=== PATIENT | female | born 1985 | race Caucasian/White ===

== ENCOUNTER 2018-06-21 18:55 | Emergency (ER) | payer OTHER ==
--- NOTE | 2018-06-21 19:39 | EDPHY ---
H & P Stated Complaint: lower quadrant abd pain since 10 am, sent by urgent care. denies fever. Time Seen by Provider: 06/21/18 19:07 HPI/ROS: CHIEF COMPLAINT: Abdominal pain HISTORY OF PRESENT ILLNESS: This is a healthy 33-year-old female who has had intermittent crampy abdominal pain for the past 8 hr. She has tried ibuprofen, Tums, and Pedialyte. The pain continues to come and go. It is located in her right lower abdomen. She has not had fever. She has not had nausea or vomiting. She reports diarrhea yesterday, none today. She had a very small bowel movement this morning and feels as if she needs to move her bowels but has been unable to do so. No blood in her stool. In addition she has urinary urgency but is having difficulty emptying her urinary bladder. She needs to bear down in order to urinate. No dysuria. She has an IUD in place and has not had a menstrual period for a couple of months. She has a remote history of Chlamydia and HPV, treated. No recent vaginal discharge. No new sexual partners. She states that she drank alcohol Wednesday night, today is Wednesday. She does not drink regularly, twice a month on average. She was seen at an urgent care and referred to the emergency department for further evaluation. REVIEW OF SYSTEMS: A ten system review of systems was performed and is negative with the exception of the items mentioned in the HPI. Past medical history: GERD Past surgical history: Bilateral elbow surgery as a child, wisdom teeth Social history: She is a paint line operator. She does not use tobacco products. She drinks alcohol twice a month on average. General Appearance: Alert. Vital signs reviewed. Blood pressure 150/85 at triage. Eyes: Pupils equal and round, no conjunctival injection, no discharge. Anicteric. ENT, Mouth: Mucous membranes are moist, no oropharyngeal erythema or edema. Neck: No lymphadenopathy, supple. Respiratory: Lungs are clear to auscultation; no wheezes, rales, or rhonchi. Cardiovascular: Regular rate and rhythm; no murmur, rub, or gallop. Gastrointestinal: Abdomen is soft with tenderness in the right lower quadrant, no masses or organomegaly, bowel sounds present. Skin: Warm and dry, no rashes on exposed skin, normal color. Back: Nontender to palpation over the thoracolumbar spine. No CVAT. Extremities: No lower extremity edema, no calf tenderness or swelling. Neurological: Alert and oriented. Moving all four extremities easily and equally. Psychiatric: Normal affect. - Personal History LMP (Females 10-55): IUD In Place Current Tetanus Diphtheria and Acellular Pertussis (TDAP): Yes - Medical/Surgical History Hx Asthma: No Hx Chronic Respiratory Disease: No Hx Diabetes: No Hx Cardiac Disease: No Hx Renal Disease: No Hx Cirrhosis: No Hx Alcoholism: No Hx HIV/AIDS: No Hx Splenectomy or Spleen Trauma: No Other PMH: GERD, Lymes disease, surgeries on both arms as child. - Social History Smoking Status: Current every day smoker Constitutional: Initial Vital Signs Temperature (C) 36.8 C 06/21/18 19:08 Heart Rate 64 06/21/18 19:08 Respiratory Rate 18 06/21/18 19:08 Blood Pressure 150/85 H 06/21/18 19:08 O2 Sat (%) 95 06/21/18 19:08 O2 Delivery Mode Room Air Allergies/Adverse Reactions: Penicillins Allergy (Verified 06/21/18 19:07) Home Medications: Medication Instructions Recorded Omeprazole 06/21/18 Medical Decision Making ED Course/Re-evaluation: Right lower quadrant pain and healthy 33-year-old female. Appendicitis and ovarian cyst are tops in my differential diagnoses. She does not have classic features of appendicitis such as anorexia or fever. Urinary tract infection is also a consideration and she has been having some difficulty voiding. CBC is normal. Urinalysis is normal. Urine test is negative. She and I discussed additional testing--US to assess her ovaries and/or CT to look for appendicitis (which I doubt). She would like to forego testing or any further ED treatment at this point. She has been advised to be re-evaluated tomorrow if her pain persists. She understands that she should be seen in an ED immediately if she develops fever, worsening pain, vomiting, or any new/ concerning symptoms. She knows that a definitive diagnosis has not been made. Differential Diagnosis: Abdominal pain including but not limited to appendicitis, cholecystitis, gastritis, ovarian torsion, ovarian cyst, and urinary tract infection. - Data Points Point of Care Test Results: CBC CBC Collection Date 06/21/18 CBC Collection Time 19:31 WBC 8.4 RBC 4.44 HGB 13.9 HCT 40 PLT 222 Neut # 4.9 Neut 57.9 LYMPH # 2.8 LYMPH 33.6 Other WBC # 0.7 Other WBC 8.5 MCV 90.1 Urine Collection Date 06/21/18 Collection Time 19:30 HCG Results Negative Urine Dip Collection Date 06/21/18 Collection Time 19:30 Specific Broad Top (1.002-1.030) 1.015 PH (5.0-7.5) 7.0 Leukocytes (Negative) Negative Nitrites (Negative) Negative Protein (Negative) Negative Glucose (Negative) Negative Ketones (Negative) Negative Urobilnogen (0.2-1.0 EU) 0.2 Bilirubin (Negative) Negative Blood (Negative) Negative Departure - Departure Disposition: Home, Routine, Self-Care Clinical Impression: Abdominal pain Qualifiers: Abdominal location: right lower quadrant Qualified Code(s): R10.31 - Right lower quadrant pain Condition: Good Instructions: Abdominal Pain (ED) Additional Instructions: As we discussed, it is not clear what is causing your abdominal pain. Some of the options include appendicitis, an ovarian cyst, and gas. You do not have fever are an elevated white blood cell count, which are some of the signs of appendicitis. However, your pain is located in your right lower abdomen, which is where the appendix generally sits. An ovarian cyst can also be painful. It is treated with anti-inflammatory medications such as ibuprofen. I recommend that you take 400-600 mg of ibuprofen every 6 hr tonight. Take this with some food. If you are worse during the night-- 1. If you develop fever 2. If you have vomiting 3. If the pain is worsening You need to be seen immediately at an emergency department. Go to the closest emergency department. If you have continued abdominal pain tomorrow morning, you should be re- evaluated in an emergency department. Referrals: Doron Reinoso MD [Medical Doctor] - As per Instructions
[2018-06-21 20:37] VITALS: BP 133/77
== END 2018-06-21 20:37 | disposition home or self-care (01) ==
LOC: CED 18:55
DX: R10.31 Right lower quadrant pain (principal)